=== PATIENT | male | born 1965 | race Caucasian/White ===

== ENCOUNTER 2018-05-19 05:42 | Day surgery (SDC) | payer OTHER ==
[2018-05-19] MEDS ORDERED: PROPOFOL 60 ML (07:52)
[2018-05-19] MEDS ORDERED: LIDOCAINE 2% (SDV) 5 ML INJ (07:52)
== END 2018-05-19 10:11 | disposition home or self-care (01) ==
LOC: GIL 05:42
DX: Z12.11 Encounter for screening for malignant neoplasm of colon (principal); I10 Essential (primary) hypertension; K64.8 Other hemorrhoids; K57.90 Diverticulosis of intestine, part unspecified, without perforation or abscess without bleeding; D12.5 Benign neoplasm of sigmoid colon
CPT/HCPCS: 45380; 88305; 88342